=== PATIENT | female | born 1985 | race Caucasian/White ===

== ENCOUNTER 2016-09-22 17:25 | Inpatient (IN) | payer BC ==
[~2016-09-22] VITALS: Ht 175.3 cm; Wt 96.6 kg
[2016-09-22 17:42] VITALS: BP 140/66
[2016-09-22] MEDS ORDERED: PRENATAL TABLE1 EAC3 PO (18:00)
[2016-09-22] MEDS ORDERED: IRON325 MG PO (18:01)
[2016-09-22 18:33] LABS: EOSINOPHIL (%) 0.7 % (0-5); EOSINOPHIL COUNT 0.1 K/uL (0-0.3); HEMATOCRIT 32.5 % (36.0-46.0); IMMATURE GRANULOCYTE (%) 1.9 % (0.0-0.7); IMMATURE GRANULOCYTE COUNT 0.2 K/uL; INSTRUMENT ABS NEUTROPHIL CT 9.2 K/uL; MCH 30.1 PG (29.0-34.0); MCHC 33.8 G/DL (30.0-36.0); MCV 88.8 FL (83-99); MEAN PLAT.VOLUME 10.7 uM^3 (9.5-12.4); MONOCYTE (%) 6.6 % (3-12); MONOCYTE COUNT 0.8 K/uL (0-0.8); NEUTROPHIL (%) 74.5 % (45-76); NEUTROPHIL COUNT 9.2 K/uL (1.8-6.4); PLATELET COUNT 153 K/uL (156-360); RBC DIS.WIDTH-CV 13.6 % (11.8-14.6); RBC DIS.WIDTH-SD 44.5 % (39-53); RED BLOOD COUNT 3.66 M/uL (3.80-5.20); WHITE BLOOD COUNT 12.4 K/uL (4.1-10.2)
[2016-09-22 18:48] LABS: ANION GAP 10 MEQ/L (2-14); CHLORIDE 104 MEQ/L (99-109); POTASSIUM 3.8 MEQ/L (3.7-5.4); SAMPLE HEMOLYSIS CHECK 0; SAMPLE ICTERIC CHECK 0; SAMPLE LIPEMIA CHECK 0; SODIUM 136 MEQ/L (136-147); TOTAL BILIRUBIN 0.4 MG/DL (0.0-1.0)
[2016-09-22 18:53] LABS: ALKALINE PHOSPHATASE 157 IU/L (3-129); GFR ESTIMATE (CALCULATED) > 59 mL/min/; GLUCOSE 106 mg/dL (70-99); LACTATE DEHYDROGENASE 145 IU/L (20-246); UREA NITROGEN (BUN) 8 mg/dL (9-23); URIC ACID 3.7 mg/dL (3.1-9.2)
[2016-09-22 19:14] VITALS: BP 136/71
[2016-09-22 19:49] VITALS: BP 117/72
[2016-09-22 21:09] VITALS: BP 122/64
[2016-09-22 22:06] VITALS: BP 120/64
[2016-09-22 22:58] VITALS: BP 119/65
[2016-09-23] VITALS (14 sets, daily range): BP systolic 95–129; BP diastolic 52–79
[2016-09-24 07:57] LABS: EOSINOPHIL (%) 1.8 % (0-5); EOSINOPHIL COUNT 0.2 K/uL (0-0.3); HEMATOCRIT 21.6 % (36.0-46.0); IMMATURE GRANULOCYTE (%) 3.6 % (0.0-0.7); IMMATURE GRANULOCYTE COUNT 0.4 K/uL; INSTRUMENT ABS NEUTROPHIL CT 7.5 K/uL; LYMPHOCYTE COUNT 2.3 K/uL (1.0-2.8); MCH 30.2 PG (29.0-34.0); MCHC 32.9 G/DL (30.0-36.0); MCV 91.9 FL (83-99); MEAN PLAT.VOLUME 10.5 uM^3 (9.5-12.4); MONOCYTE (%) 7.4 % (3-12); MONOCYTE COUNT 0.8 K/uL (0-0.8); NEUTROPHIL (%) 66.3 % (45-76); NEUTROPHIL COUNT 7.5 K/uL (1.8-6.4); PLATELET COUNT 125 K/uL (156-360); RBC DIS.WIDTH-CV 14.1 % (11.8-14.6); RBC DIS.WIDTH-SD 47.2 % (39-53); WHITE BLOOD COUNT 11.2 K/uL (4.1-10.2)
[2016-09-24 08:00] LABS: RED BLOOD COUNT 2.35 M/uL (3.80-5.20)
[2016-09-24 08:21] VITALS: BP 101/51
== END 2016-09-24 10:50 | disposition home or self-care (01) | DRG 775 ==
LOC: LDRP-OP 17:25 → 2WEST 17:30
PROVIDERS: Advanced Practice Midwife
DX: O61.0 Failed medical induction of labor (principal); O48.1 Prolonged pregnancy; O69.2XX0 Labor and delivery complicated by other cord entanglement, with compression, not applicable or unspecified; O70.1 Second degree perineal laceration during delivery; O99.02 Anemia complicating childbirth; D62 Acute posthemorrhagic anemia; Z37.0 Single live birth; Z3A.42 42 weeks gestation of pregnancy
CPT/HCPCS: 80053; 82570; 83615; 84156; 84550; 85025; G0378; J0595; J2590; J7120

== ENCOUNTER 2016-09-24 20:21 | Emergency (ER) | payer BC ==
[~2016-09-24] VITALS: Ht 167.6 cm; Wt 95.3 kg
[~2016-09-24 20:21] MED LIST: IRON325 MG PO; PRENATAL TABLE1 EAC3 PO
[2016-09-24 21:02] LABS: HEMATOCRIT 22.1 % (36.0-46.0); MCH 30.5 PG (29.0-34.0); MCV 92.5 FL (83-99); MEAN PLAT.VOLUME 10.2 uM^3 (9.5-12.4); PLATELET COUNT 162 K/uL (156-360); RBC DIS.WIDTH-CV 13.9 % (11.8-14.6); RBC DIS.WIDTH-SD 47.3 % (39-53); RED BLOOD COUNT 2.39 M/uL (3.80-5.20); WHITE BLOOD COUNT 12.1 K/uL (4.1-10.2)
[2016-09-24 21:07] LABS: CHLORIDE 110 mEq/L (99-109); POTASSIUM 4.1 mEq/L (3.7-5.4); SODIUM 142 mEq/L (136-147)
[2016-09-24 21:09] LABS: GLUCOSE 95 mg/dL (70-99)
[2016-09-24 21:10] LABS: ANION GAP 8 MEQ/L (2-14)
[2016-09-24 21:11] LABS: TOTAL BILIRUBIN 0.1 mg/dL (0.0-1.0)
[2016-09-24 21:12] LABS: ALKALINE PHOSPHATASE 104 IU/L (3-129)
[2016-09-24 21:13] LABS: GFR ESTIMATE (CALCULATED) > 59 mL/min/
[2016-09-24 21:14] LABS: UREA NITROGEN (BUN) 5 mg/dL (9-23)
[2016-09-25 01:44] VITALS: BP 128/101
[2016-09-25 02:58] VITALS: BP 112/69
[2016-09-25 03:30] VITALS: BP 105/70
[2016-09-25 04:15] VITALS: BP 115/55
[2016-09-25 06:28] VITALS: BP 115/55
== END 2016-09-25 06:29 | disposition home or self-care (01) ==
LOC: EME 20:21
PROC: 30233N1 Transfusion of Nonautologous Red Blood Cells into Peripheral Vein, Percutaneous Approach (ICD-10-PCS; principal; 2016-09-24)
DX: O90.81 Anemia of the puerperium (principal); Z87.891 Personal history of nicotine dependence
CPT/HCPCS: 80053; 85027; 86850; 86900; 86901; 86920; 99281; 99285; P9016